=== PATIENT | female | born 1935 | race Caucasian/White ===

== ENCOUNTER → 2022-08-02 | Outpatient (CLI) | payer MEDICARE, OTHER | END | disposition home or self-care (01) | LOC: LAB SHORT 11:35 → LAB 11:35 | DX: L57.0 Actinic keratosis (principal) | CPT/HCPCS: 88305 ==

== ENCOUNTER 2022-12-09 19:33 | Inpatient (IN) | payer MEDICARE, OTHER ==
[~2022-12-09] VITALS: Ht 160 cm; Wt 56.2 kg
[2022-12-09] MEDS ORDERED: LOSARTAN POTASS25 M2 PO (20:33)
[2022-12-09] MEDS ORDERED: ZOLOFT50 MG PO (20:33)
[2022-12-09 20:52] LABS: Source, Urine Voided
[2022-12-09 20:58] LABS: BASOPHILS ABSOLUTE AUTO 0.02 K/mm3 (0.00-0.23); BASOPHILS PERCENT AUTO 0 % (0-2); EOSINOPHILS ABSOLUTE AUTO 0.01 K/mm3 (0.00-0.68); EOSINOPHILS PERCENT AUTO 0 % (0-6); Hematocrit 33.1 % (33.0-51.0); Hemoglobin 11.7 g/dL (11.5-16.0); IMMATURE GRAN ABSOLUTE AUTO 0.11 K/mm3 (0.00-0.10); IMMATURE GRAN PERCENT AUTO 1 % (0-1); LYMPHOCYTES ABSOLUTE AUTO 1.25 K/mm3 (0.84-5.20); LYMPHOCYTES PERCENT AUTO 9 % (21-46); MONOCYTES ABSOLUTE AUTO 1.37 K/mm3 (0.16-1.47); MONOCYTES PERCENT AUTO 9 % (4-13); Mean Corpuscular HGB 28.2 pg (26.0-34.0); Mean Corpuscular HGB Conc 35.3 g/dL (31.5-36.5); Mean Corpuscular Volume 80 fL (80-100); Mean Platelet Volume 9.3 fL (9.1-12.4); NEUTROPHILS ABSOLUTE AUTO 11.83 K/mm3 (1.96-9.15); NEUTROPHILS PERCENT AUTO 81 % (41-73); Platelet Count 337 K/mm3 (150-400); RDW Standard Deviation 37.2 fL (35.1-46.3); Red Blood Cell Count 4.15 M/mm3 (3.80-5.20); White Blood Cell Count 14.59 K/mm3 (4.00-11.30)
[2022-12-09 20:59] LABS: Albumin, Blood 3.4 g/dL (3.4-5.0); Albumin/Globulin Ratio 0.7 (0.8-1.8); Bilirubin, Total 0.9 mg/dL (0.1-1.0); Bun/Creatinine Ratio 18.3 (12.0-20.0); Creatinine, Blood 0.49 mg/dL (0.40-1.00); Globulin, Blood 4.7 g/dL (2.2-4.0); Potassium, Blood 2.7 mmol/L (3.5-5.5); Total Protein, Blood 8.1 g/dL (6.4-8.2)
[2022-12-09 21:01] LABS: Bilirubin, Urine Neg (Neg); Blood, Urine 4+ (Neg); Glucose Qualitative, Urine Neg (Neg); Ketones, Urine Neg (Neg); Leukocyte Esterase, Urine 1+ (Neg); Nitrite, Urine Pos (Neg); Protein, Urine 2+ (Neg); Specific Gravity, Urine 1.005 (1.003-1.022); Urobilinogen, Urine NORM (Normal)
[2022-12-09 21:08] LABS: Appearance, Urine Hazy (Clear); Bacteria Many /hpf; Color, Urine Yellow (P-Yellow); Red Blood Cells, Urine 0-2 /hpf (0-2); Squamous Epithelial Cells Rare /hpf (Few); Transitional Epithelial Cells Few /hpf (0-Rare)
[2022-12-10] VITALS (8 sets, daily range): BP systolic 137–198; BP diastolic 71–143
--- NOTE | 2022-12-10 03:01 | NUR ---
PHYSICIAN COMMUNICATION PATIENT UNABLE TO TOLERATE 20 MEQ IV POTASSIUM THAT WAS SCHEDULED FOR 0200 EVEN DILUTED WITH NS. CALLED DR JAY TO INFORM HIM OF THIS AND REVIEWED HOW MUCH POTASSIUM SHE HAS GOTTING SINCE COMING INTO THE ER. DR JAY SAID IT WAS ALRIGHT TO NOT GIVE THE REST OF THIS DOSE OF POTASSIUM.
[2022-12-10 03:59] LABS: BASOPHILS ABSOLUTE AUTO 0.02 K/mm3 (0.00-0.23); BASOPHILS PERCENT AUTO 0 % (0-2); EOSINOPHILS ABSOLUTE AUTO 0.06 K/mm3 (0.00-0.68); EOSINOPHILS PERCENT AUTO 1 % (0-6); Hemoglobin 10.8 g/dL (11.5-16.0); IMMATURE GRAN ABSOLUTE AUTO 0.04 K/mm3 (0.00-0.10); IMMATURE GRAN PERCENT AUTO 0 % (0-1); LYMPHOCYTES ABSOLUTE AUTO 1.46 K/mm3 (0.84-5.20); LYMPHOCYTES PERCENT AUTO 13 % (21-46); MONOCYTES ABSOLUTE AUTO 1.22 K/mm3 (0.16-1.47); MONOCYTES PERCENT AUTO 11 % (4-13); Mean Corpuscular HGB 28.3 pg (26.0-34.0); Mean Corpuscular HGB Conc 34.8 g/dL (31.5-36.5); Mean Corpuscular Volume 81 fL (80-100); NEUTROPHILS ABSOLUTE AUTO 8.66 K/mm3 (1.96-9.15); NEUTROPHILS PERCENT AUTO 76 % (41-73); Platelet Count 289 K/mm3 (150-400); RDW Coefficient Variation 12.9 % (11.7-14.2); RDW Standard Deviation 38.5 fL (35.1-46.3); Red Blood Cell Count 3.81 M/mm3 (3.80-5.20); White Blood Cell Count 11.46 K/mm3 (4.00-11.30)
[2022-12-10 04:53] LABS: Albumin, Blood 2.8 g/dL (3.4-5.0); Albumin/Globulin Ratio 0.7 (0.8-1.8); Bilirubin, Total 0.5 mg/dL (0.1-1.0); Bun/Creatinine Ratio 13.6 (12.0-20.0); Calcium, Blood 8.7 mg/dL (8.5-10.1); Creatinine, Blood 0.52 mg/dL (0.40-1.00); Globulin, Blood 3.9 g/dL (2.2-4.0); Potassium, Blood 3.1 mmol/L (3.5-5.5); Total Protein, Blood 6.7 g/dL (6.4-8.2)
--- NOTE | 2022-12-10 06:01 | NUR ---
SHIFT SUMMARY PATIENT ARRIVED TO PCU 11 VIA STRETCHER AT 0035. ALERT AND ORIENTED X3, UNSURE OF DATE AND CURRENT SITUATION. PATIENT IS PLEASANTLY CONFUSED AND COOPORATIVE WITH CARE. PATIENT CONTINENT AND ABLE TO TRANSFER TO BEDSIDE COMMODE WITH MINIMAL ASSISTANCE. SHE IS WEAK BUT IS TYPICALLY INDEPENDENT, LIVING IN A HOUSE ON HER DAUGHTER'S PROPERTY. LUNG SOUNDS CLEAR T/O, SPO2 96% ON ROOM AIR. PATIENT HAD NO COMPLAINTS OF CHEST PAIN OR SHORTNESS OF BREATH. HYPERTENSIVE IN THE 170'S, SINUS RHYTHM IN THE 60'S-70'S ON TELE. NO ACUTE ISSUES NOTED OVERNIGHT. PATIENT ASSESSED FOR IGNITION RISK. WILL CONTINUE TO MONITOR. CALL LIGHT WITHIN REACH.
--- NOTE | 2022-12-10 06:26 | NUR ---
PHYSICIAN COMMUNICATION CALLED DR CASTAÑEDA TO NOTIFY HIM THAT THE PATIENT'S BLOOD PRESSURE INCREASED TO 198/89 AND ASKED IF PATIENT'S 0900 LOSARTAN COULD BE GIVEN EARLY. ALSO NOTIFIED HIM THAT THE PATIENT'S POTASSIUM WAS 3.1 WITH THE MORNING BLOOD DRAW. DR CASTAÑEDA SAID TO GO AHEAD AND GIVE THE LOSARTAN EARLY AND ORDERED A ONE TIME DOSE OF 40 MEQ ORAL POTASSIUM CHLORIDE.
--- NOTE | 2022-12-10 17:02 | NUR ---
transfer note pt alert, follows directions. vss. htn noted this shift, prn hydralazine given per emar x1. sp02>90% on ra. Pt up to bsc to void. Evaluated by PTPrincess. Speech therapy referral placed, speech unable to see pt until monday. MD notified, advanced diet to thickened liquids. Pt able to intake w/o obvious signs of aspiration. Clarence Martell, in room today. Daughter called and notified of pt transfer from pcu 11 to medical floor room 351. Report given to medical floor RN.
--- NOTE | 2022-12-10 18:14 | NUR ---
SHIFT SUMMARY 1725 RECEIVED PT TO RM 351 VIA W/C FROM U 11. PT ABLE TO TX SELF TO BED WITH 1P ASSIST. DINNER BROUGHT UP FROM U; PT NOT WANTING TO EAT. PT ENCOURAGED TO TAKE A COUPLE OF BITS; MEAT DIFFICULT TO CHEW, BUT NO CHOKING NOTED. [facility] SOFT DIET ORDERED. THICKENED LIQUIDS GIVEN, PER REPORT AND SPEECH UNAVAILABLE UNTIL MONDAY. DENIED FURTHER NEEDS AT THIS TIME. CALL LT IN REACH. BED ALARM ON FOR SAFETY.
[2022-12-11 04:29] VITALS: BP 159/70
--- NOTE | 2022-12-11 05:27 | NUR ---
SHIFT SUMMARY PATIENT HAD NO ACUTE CHANGES. AXOX 2 AND FORGETFUL NOT REMEMBERING WHO WAS JUST IN ROOM. ONE ASSIST TO BSC. TOOK MEDICATION WHOLE WITH WATER. PIV REMAINS INTACT. TELE MONITOR NSR 81. DENIES CHEST PAIN, SOB, AND N/V. VSS/AFEBRILE. SLEPT MOST OF SHIFT. CALL LIGHT IN REACH. BED IN LOWEST POSITION. WILL CONTINUE TO MONITOR UNTIL DAY SHIFT NURSE ASSUMES CARE.
[2022-12-11 05:33] LABS: BASOPHILS ABSOLUTE AUTO 0.04 K/mm3 (0.00-0.23); BASOPHILS PERCENT AUTO 0 % (0-2); EOSINOPHILS ABSOLUTE AUTO 0.08 K/mm3 (0.00-0.68); EOSINOPHILS PERCENT AUTO 1 % (0-6); Hemoglobin 11.3 g/dL (11.5-16.0); IMMATURE GRAN ABSOLUTE AUTO 0.05 K/mm3 (0.00-0.10); IMMATURE GRAN PERCENT AUTO 0 % (0-1); LYMPHOCYTES ABSOLUTE AUTO 1.14 K/mm3 (0.84-5.20); LYMPHOCYTES PERCENT AUTO 10 % (21-46); MONOCYTES ABSOLUTE AUTO 1.18 K/mm3 (0.16-1.47); MONOCYTES PERCENT AUTO 11 % (4-13); Mean Corpuscular HGB 28.2 pg (26.0-34.0); Mean Corpuscular HGB Conc 34.2 g/dL (31.5-36.5); Mean Corpuscular Volume 82 fL (80-100); Mean Platelet Volume 9.1 fL (9.1-12.4); NEUTROPHILS ABSOLUTE AUTO 8.73 K/mm3 (1.96-9.15); NEUTROPHILS PERCENT AUTO 78 % (41-73); Platelet Count 334 K/mm3 (150-400); RDW Coefficient Variation 13.2 % (11.7-14.2); RDW Standard Deviation 39.8 fL (35.1-46.3); Red Blood Cell Count 4.01 M/mm3 (3.80-5.20); White Blood Cell Count 11.22 K/mm3 (4.00-11.30)
[2022-12-11 05:59] LABS: Albumin, Blood 2.8 g/dL (3.4-5.0); Anion Gap 9 mmol/L (6-16); Blood Urea Nitrogen 6 mg/dL (8-24); Bun/Creatinine Ratio 12.1 (12.0-20.0); CO2, Blood 25 mmol/L (21-32); Calcium, Blood 9.1 mg/dL (8.5-10.1); Chloride, Blood 97 mmol/L (98-108); Glomerular Filtration Rate 90 (60-); Glucose, Blood 104 mg/dL (70-99); Phosphorus, Blood 2.9 mg/dL (2.5-4.9); Potassium, Blood 2.9 mmol/L (3.5-5.5); Sodium, Blood 131 mmol/L (136-145)
[2022-12-11 07:25] VITALS: BP 166/71
--- NOTE | 2022-12-11 15:06 | NUR ---
SHIFT SUMMARY PT AWAKE DURING SHIFT REPORT THIS AM. PLEASANT AND CO-OP. UP TO CHAIR FOR MEALS AND THEN WANTING BACK TO BED. DR SUN IN TO SEE PT AND DISCUSS PLAN OF CARE. PT TO RESTRICT FREE WATER BOTH HERE AND AT D/C. THERAPY TO EVAL FOR D/C TOMORROW. PT'S DAUGHTER IN THIS AM UNTIL AFTER LUNCH. PT TO MOVE IN WITH DAUGHTER WHEN D/C'D TO HOME. PT WAS LIVING IN TRAILER ON DAUGHTER'S PROPERTY, BUT NOW REQUIRING A LITTLE CLOSER MONITORING, D/T RECENT FALLS. PT'S MOBILITY IMPROVED TODAY AND PT IS REALLY WANTING TO GO HOME. PT IS UP OOB WITH FWW AND SBA. BED ALARM ON FOR SAFETY. CALL LT IN REACH.
[2022-12-11 15:23] VITALS: BP 165/67
[2022-12-11 19:53] VITALS: BP 162/89
[2022-12-12 03:43] VITALS: BP 180/68
[2022-12-12 04:58] VITALS: BP 151/61
--- NOTE | 2022-12-12 04:59 | NUR ---
BP 180/68 AND IV APRESOLINE 10 MG GIVEN FOR SBP >160 BP 151/61 ON RECHECK. WCTM
--- NOTE | 2022-12-12 05:00 | NUR ---
SHIFT SUMMARY PATIENT HAD NO ACUTE CHANGES. AXOX 2, FORGETFUL, AND ONE ASSIST TO BSC. HYPERTENSIVE 180/68 AND IV APRESOLINE 10 MG GIVEN AND RECHECK 151/61. DENIES CHEST PAIN, SOB, AND N/V. PIV REMAINS INTACT. IV ABX INFUSED. VSS/AFEBRILE. COOPERATIVE WITH CARE. CALL LIGHT IN REACH. BED IN LOWEST POSITION. WILL CONTINUE TO MONITOR UNTIL DAY SHIFT NURSE ASSUMES CARE.
[2022-12-12 06:01] LABS: Bun/Creatinine Ratio 13.9 (12.0-20.0); Calcium, Blood 9.1 mg/dL (8.5-10.1); Creatinine, Blood 0.5 mg/dL (0.40-1.00); Potassium, Blood 3.3 mmol/L (3.5-5.5)
[2022-12-12 07:34] VITALS: BP 158/77
[2022-12-12] MEDS ORDERED: POTCHL20ER PO (12:04)
[2022-12-12] MEDS ORDERED: VISBIOME 112.51 EACH PO (12:04)
[2022-12-12] MEDS ORDERED: CEPH500 PO (12:05)
--- NOTE | 2022-12-12 15:18 | NUR ---
PT DISCHARGED FROM THE UNIT. IV REMOVED. DISCHARGE INSTRUCTIONS REVIEWED WITH FAMILY AND PT. PT LEFT UNIT VIA WHEEL CHAIR, DAUGHTER TO DRIVE HOME. MEDICATIONS FAXED TO PHARMACY.
== END 2022-12-12 13:51 | disposition home health service (06) | DRG 640 ==
LOC: ER 19:33 → PCU 23:08 → MEDS 23:08 → PCU 12-10 00:32 → MEDS 12-10 17:26 → ENPENDDIS 12-12 10:09 → MEDS 12-12 13:51
PROVIDERS: Emergency Medicine; Family Medicine; ADMIT Student in an Organized Health Care Education/Training Program
DX: E87.1 Hypo-osmolality and hyponatremia (principal); A41.51 Sepsis due to Escherichia coli [E. coli]; G92.8 Other toxic encephalopathy; N39.0 Urinary tract infection, site not specified; E87.6 Hypokalemia; Z66 Do not resuscitate; S40.012A Contusion of left shoulder, initial encounter; X58.XXXA Exposure to other specified factors, initial encounter; D64.9 Anemia, unspecified; I10 Essential (primary) hypertension; F32.A Depression, unspecified; R54 Age-related physical debility; Z90.710 Acquired absence of both cervix and uterus; Z98.890 Other specified postprocedural states
CPT/HCPCS: 36415; 73030; 80048; 80053; 80069; 81001; 82947; 83605; 84295; 85025; 87040; 87077; 87086; 87186; 92610; 96361; 96365; 96366; 96375; 97110; 97116; 97162; 97530; 99285-25; A9270; J0360; J0696; J1650; J3480; J7030; J7050; P9612

== ENCOUNTER 2022-12-24 15:12 | Inpatient (IN) | payer MEDICARE, OTHER ==
[~2022-12-24] VITALS: Ht 160 cm; Wt 54.4 kg
[~2022-12-24 15:12] MED LIST: CEPH500 PO; LOSARTAN POTASS25 M2 PO; POTCHL20ER PO; VISBIOME 112.51 EACH PO; ZOLOFT50 MG PO
[2022-12-24 15:40] LABS: BASOPHILS ABSOLUTE AUTO 0.04 K/mm3 (0.00-0.23); BASOPHILS PERCENT AUTO 1 % (0-2); EOSINOPHILS ABSOLUTE AUTO 0.25 K/mm3 (0.00-0.68); EOSINOPHILS PERCENT AUTO 3 % (0-6); Hematocrit 34.3 % (33.0-51.0); Hemoglobin 11.4 g/dL (11.5-16.0); IMMATURE GRAN ABSOLUTE AUTO 0.06 K/mm3 (0.00-0.10); IMMATURE GRAN PERCENT AUTO 1 % (0-1); LYMPHOCYTES ABSOLUTE AUTO 2.11 K/mm3 (0.84-5.20); LYMPHOCYTES PERCENT AUTO 26 % (21-46); MONOCYTES ABSOLUTE AUTO 1.19 K/mm3 (0.16-1.47); MONOCYTES PERCENT AUTO 14 % (4-13); Mean Corpuscular HGB 27.5 pg (26.0-34.0); Mean Corpuscular HGB Conc 33.2 g/dL (31.5-36.5); Mean Corpuscular Volume 83 fL (80-100); Mean Platelet Volume 8.9 fL (9.1-12.4); NEUTROPHILS ABSOLUTE AUTO 4.63 K/mm3 (1.96-9.15); NEUTROPHILS PERCENT AUTO 56 % (41-73); Platelet Count 427 K/mm3 (150-400); RDW Standard Deviation 42.2 fL (35.1-46.3); Red Blood Cell Count 4.15 M/mm3 (3.80-5.20); White Blood Cell Count 8.28 K/mm3 (4.00-11.30)
[2022-12-24 16:11] LABS: Albumin, Blood 3.5 g/dL (3.4-5.0); Albumin/Globulin Ratio 0.8 (0.8-1.8); Bilirubin, Total 0.2 mg/dL (0.1-1.0); Bun/Creatinine Ratio 28.2 (12.0-20.0); Calcium, Blood 9.4 mg/dL (8.5-10.1); Creatinine, Blood 0.57 mg/dL (0.40-1.00); Globulin, Blood 4.4 g/dL (2.2-4.0); Magnesium, Blood 2.1 mg/dL (1.6-2.4); Potassium, Blood 4.6 mmol/L (3.5-5.5); Total Protein, Blood 7.9 g/dL (6.4-8.2)
[2022-12-24 16:30] LABS: Source, Urine Clean Catch
[2022-12-24 16:33] LABS: Appearance, Urine Clear (Clear); Bilirubin, Urine Neg (Neg); Blood, Urine Neg (Neg); Color, Urine Pale Yellow (P-Yellow); Glucose Qualitative, Urine Neg (Neg); Ketones, Urine Neg (Neg); Leukocyte Esterase, Urine Neg (Neg); Nitrite, Urine Neg (Neg); Protein, Urine Neg (Neg); Urobilinogen, Urine NORM (Normal)
[2022-12-24 21:31] VITALS: BP 156/53
[2022-12-24] MEDS ORDERED: NAPR220 PO (22:05)
--- NOTE | 2022-12-25 03:46 | NUR ---
SHIFT SUMMERY. PT RESTING IN BED. PT CONFUSED NOT SURE WHY SHE IS HERE AND STRETLES EASIEY WHEN BED MOVED OR AWOKEN. CALL LIGHT IN REACH BED ALARM ON. PT UP TO BSC TO VOID LG AMOUT OF URINE. FIRE SAFETY REVIEWED.
[2022-12-25 04:17] VITALS: BP 151/53
[2022-12-25 07:34] VITALS: BP 149/66
[2022-12-25 11:51] LABS: Free Thyroxine 0.85 ng/dL (0.70-1.60)
[2022-12-25 17:07] VITALS: BP 155/57
[2022-12-25 20:36] VITALS: BP 143/53
[2022-12-26 01:43] VITALS: BP 163/64
--- NOTE | 2022-12-26 05:45 | NUR ---
SHIFT SUMMERY, PTS DAUGHTER HERE WITH PT, BUT WENT HOME . PT THEN RESTING IN BED. PT CALM AND COOPERATIVE BUT CONFUSED. PT CONTANAT OF URINE AND STOOL NEEDS SBA TO BSC, PT SLEEPING MOST OF THE NIGHT. CALL LIGHT IN REACH. FIRE SAFETY REVIEWED
[2022-12-26 08:22] VITALS: BP 166/71
[2022-12-26 09:06] LABS: Bun/Creatinine Ratio 20.4 (12.0-20.0); Calcium, Blood 9.3 mg/dL (8.5-10.1); Creatinine, Blood 0.49 mg/dL (0.40-1.00); Potassium, Blood 4.3 mmol/L (3.5-5.5)
[2022-12-26] MEDS ORDERED: Amlodipine Bes2.5 MG PO (13:05)
--- NOTE | 2022-12-26 14:56 | NUR ---
PATIENT DISCHARGED TO HOME ACCOMPANIED BY HER DAUGHTER REGINA. IV SALINE LOCK AND TELEMETRY REMOVED WITHOUT INCIDENT. REGINA VERBALIZED UNDERSTANDING OF D/C INSTRUCTIONS (PT HAS DEMENTIA) AND NEED FOR FOLLOW UP. PT DRESSED IN OWN CLOTHING WITH ASSISTANCE. OFF UNIT VIA W/C AT 1340. NO PERSONAL BELONGINGS LEFT BEHIND IN ROOM.
== END 2022-12-26 13:31 | disposition home or self-care (01) | DRG 641 ==
LOC: ER 15:12 → MEDS 15:13
PROVIDERS: Internal Medicine; Physician Assistant; ADMIT Hospitalist
DX: E87.1 Hypo-osmolality and hyponatremia (principal); F02.82 Dementia in other diseases classified elsewhere, unspecified severity, with psychotic disturbance; G30.9 Alzheimer's disease, unspecified; I10 Essential (primary) hypertension; Z90.710 Acquired absence of both cervix and uterus; Z98.890 Other specified postprocedural states; Z79.899 Other long term (current) drug therapy; Z87.440 Personal history of urinary (tract) infections; Z91.81 History of falling; Z86.19 Personal history of other infectious and parasitic diseases
CPT/HCPCS: 36415; 71046; 80048; 80053; 81003; 83735; 83930; 83935; 84295; 84300; 84439; 84443; 85025; 93005; 93010; 96360; 96361; 96372; 97110; 97162; 97530; 99285-25; A9270; G0378; J1650; J7030

== ENCOUNTER → 2023-05-26 | Outpatient (CLI) | payer MEDICARE, OTHER ==
[~2023-05-26] MED LIST changes: +Amlodipine Bes2.5 MG PO; +NAPR220 PO
[2023-05-26 15:11] LABS: Bilirubin, Urine Neg (Neg); Blood, Urine Neg (Neg); Color, Urine Yellow (P-Yellow); Glucose Qualitative, Urine Neg (Neg); Ketones, Urine Neg (Neg); Leukocyte Esterase, Urine Neg (Neg); Nitrite, Urine Pos (Neg); Protein, Urine Neg (Neg); Urobilinogen, Urine NORM (Normal)
[2023-05-26 15:20] LABS: Appearance, Urine Hazy (Clear)
[2023-05-26 15:21] LABS: Amorphous Light (0-Heavy); Bacteria Many /hpf; Hyaline Casts 0-2 /lpf (0-2); Red Blood Cells, Urine 0-2 /hpf (0-2); Squamous Epithelial Cells Few /hpf (Few)
== END ==
LOC: LAB SHORT 13:23 → LAB 13:23
PROVIDERS: Legal Medicine
DX: N39.0 Urinary tract infection, site not specified (principal)
CPT/HCPCS: 81001; 87077; 87086; 87186

== ENCOUNTER → 2023-06-09 | Outpatient (CLI) | payer MEDICARE, OTHER ==
[2023-06-09 11:35] LABS: Source, Urine Clean Catch
[2023-06-09 12:13] LABS: Appearance, Urine Hazy (Clear); Bilirubin, Urine Neg (Neg); Blood, Urine 2+ (Neg); Color, Urine Yellow (P-Yellow); Glucose Qualitative, Urine Neg (Neg); Ketones, Urine Neg (Neg); Leukocyte Esterase, Urine 2+ (Neg); Nitrite, Urine Neg (Neg); Protein, Urine Neg (Neg); Specific Gravity, Urine 1.015 (1.003-1.022); Urobilinogen, Urine NORM (Normal)
[2023-06-09 12:29] LABS: Bacteria Many /hpf; Squamous Epithelial Cells Few /hpf (Few)
[2023-06-09 12:30] LABS: Hyaline Casts 0-2 /lpf (0-2); Yeast/Fungi Urine Rare /hpf
== END ==
LOC: LAB SHORT 11:32 → LAB 11:32
PROVIDERS: Legal Medicine
DX: N39.0 Urinary tract infection, site not specified (principal)
CPT/HCPCS: 81001; 87086

== ENCOUNTER → 2023-06-19 | Outpatient (CLI) | payer MEDICARE, OTHER ==
[2023-06-19 14:46] LABS: Source, Urine Clean Catch
[2023-06-19 15:56] LABS: Appearance, Urine Clear (Clear); Bilirubin, Urine Neg (Neg); Blood, Urine Neg (Neg); Color, Urine Yellow (P-Yellow); Glucose Qualitative, Urine Neg (Neg); Ketones, Urine Neg (Neg); Leukocyte Esterase, Urine 1+ (Neg); Nitrite, Urine Neg (Neg); Protein, Urine Neg (Neg); Specific Gravity, Urine 1.015 (1.003-1.022); Urobilinogen, Urine NORM (Normal)
[2023-06-19 16:34] LABS: Bacteria Few /hpf; Red Blood Cells, Urine 0-2 /hpf (0-2); Squamous Epithelial Cells Few /hpf (Few); Transitional Epithelial Cells Rare /hpf (0-Rare)
== END ==
LOC: LAB 13:49 → LAB SHORT 13:49
PROVIDERS: Legal Medicine
DX: N39.0 Urinary tract infection, site not specified (principal)
CPT/HCPCS: 81001

== ENCOUNTER → 2023-11-08 | Outpatient (CLI) | payer MEDICARE, OTHER ==
[2023-11-08 12:19] LABS: Source, Urine Voided
[2023-11-08 13:19] LABS: Appearance, Urine Clear (Clear); Bilirubin, Urine Neg (Neg); Blood, Urine 1+ (Neg); Color, Urine Yellow (P-Yellow); Glucose Qualitative, Urine Neg (Neg); Ketones, Urine 1+ (Neg); Leukocyte Esterase, Urine 1+ (Neg); Nitrite, Urine Neg (Neg); Protein, Urine 3+ (Neg); Specific Gravity, Urine 1.025 (1.003-1.022); Urobilinogen, Urine NORM (Normal)
[2023-11-08 13:31] LABS: Amorphous Light (0-Heavy); Bacteria Mod /hpf; Red Blood Cells, Urine 0-2 /hpf (0-2); Squamous Epithelial Cells Few /hpf (Few)
== END | disposition home or self-care (01) ==
LOC: LAB SHORT 12:17 → LAB 12:17
PROVIDERS: Legal Medicine
DX: N39.0 Urinary tract infection, site not specified (principal)
CPT/HCPCS: 81001; 87086

== ENCOUNTER → 2023-11-24 | Outpatient (CLI) | payer MEDICARE, OTHER ==
[2023-11-24 12:09] LABS: Source, Urine Voided
[2023-11-24 13:05] LABS: Appearance, Urine Clear (Clear); Bilirubin, Urine Neg (Neg); Blood, Urine Neg (Neg); Glucose Qualitative, Urine Neg (Neg); Ketones, Urine Neg (Neg); Leukocyte Esterase, Urine 1+ (Neg); Nitrite, Urine Neg (Neg); Protein, Urine Neg (Neg); Urobilinogen, Urine NORM (Normal)
[2023-11-24 13:20] LABS: Color, Urine Pale Yellow (P-Yellow)
[2023-11-24 13:21] LABS: Bacteria Many /hpf; Squamous Epithelial Cells Few /hpf (Few); White Blood Cells, Urine 0-2 /hpf (0-5)
== END ==
LOC: LAB 12:06 → LAB SHORT 12:06
PROVIDERS: Legal Medicine
DX: N39.0 Urinary tract infection, site not specified (principal)
CPT/HCPCS: 81001; 87086

== ENCOUNTER 2024-01-17 11:45 | Day surgery (SDC) | payer MEDICARE, OTHER ==
[~2024-01-17] VITALS: Ht 157.5 cm; Wt 61.7 kg
[~2024-01-17 11:45] MED LIST changes: +Balanced Salt Epinephrine Irrigation Solution 500 mL IR SCH; +FentaNYL Citrate 50 MCG/ML 2 ML Injection ONE; +LEVSOD25 PO; +Lidocaine HCl/Pf 1% 5 ML VIAL XX SCH; +Midazolam HCl 1MG / ML 2ML Vial ONE; +Moxifloxacin HCL 0.5 MG/0.1 ML 0.4MLSYR RIGHTEYE SCH; +NS 500 ML IV ONE; +PHENYLEPHRINE\\TROPICAMIDE\\TETRACAINE OPHTHALMIC DILATING SOLN RIGHTEYE PRN; +Povidone-Iodine 450 DROP/30 ML Solution RIGHTEYE SCH
[2024-01-17] MEDS ORDERED: POTA10T PO (12:05)
[2024-01-17] MEDS ORDERED: NS 500 ML IV ONE (12:08)
[2024-01-17 15:19] VITALS: BP 166/91
== END 2024-01-17 13:25 | disposition home or self-care (01) ==
LOC: ORSCSDS 11:45
PROVIDERS: Student in an Organized Health Care Education/Training Program
PROC: 08RJ3JZ Replacement of Right Lens with Synthetic Substitute, Percutaneous Approach (ICD-10-PCS; principal; 2024-01-17 11:00)
DX: H25.813 Combined forms of age-related cataract, bilateral (principal); I10 Essential (primary) hypertension; E07.9 Disorder of thyroid, unspecified; F03.90 Unspecified dementia, unspecified severity, without behavioral disturbance, psychotic disturbance, mood disturbance, and anxiety; Z79.899 Other long term (current) drug therapy
CPT/HCPCS: J2250; J3010; J7040; V2632

== ENCOUNTER 2024-01-23 06:16 | Day surgery (SDC) | payer MEDICARE, OTHER ==
[~2024-01-23] VITALS: Ht 157.5 cm; Wt 61.6 kg
[~2024-01-23 06:16] MED LIST changes: -FentaNYL Citrate 50 MCG/ML 2 ML Injection ONE; -Midazolam HCl 1MG / ML 2ML Vial ONE; +Moxifloxacin HCL 0.5 MG/0.1 ML 0.4MLSYR LEFTEYE SCH; -Moxifloxacin HCL 0.5 MG/0.1 ML 0.4MLSYR RIGHTEYE SCH; +PHENYLEPHRINE\\TROPICAMIDE\\TETRACAINE OPHTHALMIC DILATING SOLN LEFTEYE PRN; -PHENYLEPHRINE\\TROPICAMIDE\\TETRACAINE OPHTHALMIC DILATING SOLN RIGHTEYE PRN; +POTA10T PO; +Povidone-Iodine 450 DROP/30 ML Solution LEFTEYE SCH; -Povidone-Iodine 450 DROP/30 ML Solution RIGHTEYE SCH
[2024-01-23] MEDS ORDERED: NS 500 ML IV ONE (06:41)
--- NOTE | 2024-01-23 06:42 | NUR ---
01/23/24 0642 Kandy Rey CALL LIGHT WITHIN REACH. TETRACAINE IN LEFT EYE AT 0636 AND PLEDGETT AT 0637
[2024-01-23] MEDS ORDERED: Lidocaine HCl/Pf 1% 5 ML VIAL ONE (06:44)
[2024-01-23] MEDS ORDERED: Povidone-Iodine 450 DROP/30 ML Solution XX ONE (07:25)
[2024-01-23] MEDS ORDERED: Balanced Salt Epinephrine Irrigation Solution 500 mL IR ONE (07:36)
[2024-01-23] MEDS ORDERED: Moxifloxacin HCL 0.5 MG/0.1 ML 0.4MLSYR XX ONE (07:36)
[2024-01-23] MEDS ORDERED: Midazolam HCl 1MG / ML 2ML Vial ONE (07:53)
--- NOTE | 2024-01-23 10:54 | NUR ---
01/23/24 1054 Cleve Euceda PT INITIALLY VERY SLEEPY IN SDU. SHE WAS AWAKE AND ALERT BY TIME OF IV REMOVAL. DAUGHTER WAS AT BEDSIDE, STATES SHE IS POA. PT INITIALLY HAD DIFFICULTY VERBALIZING PAIN LEVEL. FLACC 0-4/10 THROUGHOUT SDU STAY. SHE DESCRIBED 8/10 PAIN SHORTLY AFTER ARRIVING IN SDU. SHE WAS OFFERED TYLENOL BUT DID NOT STATE THAT SHE WANTED IT. DAUGHTER STATES SHE USUALLY TAKES ALEVE OTC FOR PAIN. PT STATED PAIN WAS TOLERABLE PRIOR TO D/C AND EXPRESSED READINESS TO RETURN HOME. PT DENIED CARDIAC SYMPTOMS INCLUDING CP, SOB, WEAKNESS, DIZZINESS, HEADACHE, FACIAL DROOP, AND NAUSEA. NONE WERE OBSERVED. PT INSTRUCTED TO SEEK EMERGENCY CARE IF SHE EXPERIENCES THESE SYMPTOMS. PYROTECHNIC MIXER BRANDON CONSULTED REGARDING HYPERTENSION AND APPROVED D/C. PT INSTRUCTED TO MONITOR B/P AT HOME AND FOLLOW UP WITH PCP IF IT DOES NOT RETURN TO [facility]. INSTRUCTIONS WERE WRITTEN FOR ASSISTED STAFF WELL.
[2024-01-23 10:59] VITALS: BP 167/80
== END 2024-01-23 08:30 | disposition home or self-care (01) ==
LOC: ORSCSDS 06:16
PROVIDERS: Student in an Organized Health Care Education/Training Program
PROC: 08RK3JZ Replacement of Left Lens with Synthetic Substitute, Percutaneous Approach (ICD-10-PCS; principal; 2024-01-23 07:30)
DX: H25.812 Combined forms of age-related cataract, left eye (principal); Z96.1 Presence of intraocular lens; I10 Essential (primary) hypertension; E07.9 Disorder of thyroid, unspecified; Z79.899 Other long term (current) drug therapy
CPT/HCPCS: J2001; J2250; J7040; V2632